=== PATIENT | female | born 1950 | race Caucasian/White ===

== ENCOUNTER 2020-08-11 20:02 | Emergency (ER) | payer OTHER, SELFPAY ==
[2020-08-11 20:13] VITALS: BP 159/84; PULSE 92; RESP 18; TEMP 37.1; O2SAT 99
== END 2020-08-11 20:15 | disposition left against medical advice (07) ==
PROVIDERS: Emergency Provider Nurse Practitioner
DX: Z01.812 Encounter for preprocedural laboratory examination (principal)
CPT/HCPCS: 99199

== ENCOUNTER 2021-12-24 18:07 | Emergency (ER) | payer OTHER, SELFPAY ==
[2021-12-24 18:18] VITALS: BP 177/57; PULSE 99; RESP 14; TEMP 36.6; O2SAT 97
--- NOTE | 2021-12-24 20:13 | ED.EXTPRO ---
HPI - Extremity Problem General Chief complaint: Extremity Problem,Nontraumatic Stated complaint: red swollen leg, right Time Seen by Provider: 12/24/21 19:58 Source: patient Mode of arrival: wheelchair Limitations: no limitations History of Present Illness HPI Narrative: This is a 71-year-old female that presents to the emergency department for right lower extremity edema and erythema. Ongoing over the last 3 days. Does report a ground-level fall the week prior. She did not sustain any injuries after that though. No recent travel or surgery. She does take exogenous estrogen. Denies any pain or fevers. Related Data Home Medications Medication Instructions Recorded Confirmed clonidine 0.1 mg/24 hr weekly 1 patch transdermal WEEKLY 02/03/19 02/03/19 transdermal patch esomeprazole magnesium 40 mg 40 mg PO DAILY 02/03/19 02/03/19 capsule,delayed release (Nexium) estradiol 2 mg (7.5 mcg/24 hour) 1 vag ring vaginal [id number] 02/03/19 02/03/19 vaginal ring levothyroxine 25 mcg tablet 25 mcg PO DAILY 02/03/19 02/03/19 (Synthroid) liraglutide 0.6 mg/0.1 mL (18 mg/3 0.6 mg subcut DAILY 02/03/19 02/03/19 mL) subcutaneous pen injector (Victoza 3-Benjamín) sertraline 100 mg tablet (Zoloft) 100 mg PO DAILY 02/03/19 02/03/19 Allergies Allergy/AdvReac Type Severity Reaction Status Date / Time Sulfa (Sulfonamide Allergy Unknown Difficulty Verified 12/24/21 18:07 Antibiotics) breathing mycins Allergy Unknown Other Uncoded 12/24/21 18:07 Review of Systems Review of Systems: CONSTITUTIONAL: Denies fever SKIN: Reports erythema and warmth All systems reviewed & are unremarkable except as noted in HPI and below PMFSH Past Medical History Medical History (Updated 12/24/21 @ 23:00 by Tona Hamm PA-C) Breast cancer Depression Diabetes mellitus GERD (gastroesophageal reflux disease) Hypertension Hypothyroidism Surgical History Surgical History History of partial mastectomy of right breast Family History Family History (Updated 09/20/17 @ 14:28 by DOCTOR UNKNOWN) Other Family history of malignant neoplasm Social History Social History (Updated 12/24/21 @ 20:15 by Tona Hamm PA-C) Smoking status: Former smoker Alcohol intake: never Gender identity (if verbalized by the patient): Female Exam Narrative: GENERAL: Well-appearing, well-nourished, and in no acute distress. HEAD: Normocephalic, atraumatic. EYES: EOMI. CHEST: No respiratory distress. HEART: Regular rate EXTREMITIES: Normal range of motion. Mild edema and erythema noted below the right knee to the ankle. Normal DP pulse. Normal sensation SKIN: Warm, dry, no rash. NEURO: No focal deficits. Alert and oriented x3. PSYCH: Normal mood and affect Course Vital Signs Vital signs: Vital Signs Temperature 97.8 F 12/24/21 18:18 Pulse Rate 99 12/24/21 18:18 Respiratory Rate 14 12/24/21 18:18 Blood Pressure 177/57 H 12/24/21 18:18 Pulse Oximetry 97 12/24/21 18:18 Oxygen Delivery Room Air 12/24/21 18:18 Temperature 97.8 F 12/24/21 18:18 Pulse Rate 99 12/24/21 18:18 Respiratory Rate 14 12/24/21 18:18 Blood Pressure 177/57 H 12/24/21 18:18 Pulse Oximetry 97 12/24/21 18:18 Oxygen Delivery Room Air 12/24/21 18:18 MDM - Extremity (Nontraumatic) MDM Narrative Medical decision making narrative: Patient presents the emergency department for right lower extremity edema and erythema noted over the last couple of days. Patient is afebrile and nontoxic-appearing. CBC with leukocytosis to 15.1. Inflammatory markers are elevated as well. D-dimer is also elevated. Patient will be started on oral antibiotics for cellulitis. She will also be set up for an ultrasound of her right lower extremity for possibility of DVT. Given a dose of Lovenox in the ER omaira. Is to have close follow-up with her primary provider. She hamlet
[2021-12-24 20:16] LABS: Basophils Percent Auto 0.3 % (0.2-1.2); Eosinophils Percent Auto 0.1 % (0-4.4); Hematocrit 35.3 % (37.0-47.0); Hemoglobin 10.6 g/dL (12.0-15.0); Immature Granulocyte Absolute 0.09 K/mm3 (0.00-0.031); Immature Granulocyte Percent A 0.6 % (0-0.5); Lymphocytes Absolute Auto 1.25 K/mm3 (0.9-3.2); Lymphocytes Percent Auto 8.3 % (18.3-44.2); Mean Corpuscular Hemoglobin 22.5 pg (26-34); Mean Corpuscular Volume 74.9 fl (80-100); Mean Platelet Volume 10.3 fl (7.4-10.4); Monocytes Absolute Auto 0.6 K/mm3 (0.1-0.6); Monocytes Percent Auto 4.2 % (2.6-8.5); Neutrophils Absolute Auto 13.1 K/mm3 (1.3-6.7); Neutrophils Percent Auto 86.5 % (45.5-73.1); Platelet Count Result 258 k/mm3 (150-375); Red Blood Count 4.71 M/mm3 (4.2-5.4); Red Cell Distribution Width 16.1 % (11.5-14.5); White Blood Count 15.1 K/mm3 (4.5-10.0)
[2021-12-24 20:27] LABS: Alanine Aminotransferase 20 U/L (6-35); Albumin Level 4.1 g/dL (3.5-5.1); Alkaline Phosphatase 90 U/L (38-126); Anion Gap 11 mmol/L (8-16); Aspartate Amino Transferase 25 U/L (14-36); Bilirubin,Total 0.7 mg/dL (0.2-1.3); Blood Urea Nitrogen 19 mg/dL (7-17); Calcium 9.6 mg/dL (8.4-10.2); Carbon Dioxide 25 mmol/L (22-30); Chloride 101 mmol/L (98-107); Estimated CRCL calculation 117 ml/min; Estimated Glomerular Filt Rate > 60; Glucose 170 mg/dL (65-110); INR 1.2; Potassium 3.7 mmol/L (3.4-5.0); Prothrombin Time 14.6 Seconds (11.1-14.7); Sodium 137 mmol/L (137-145)
[2021-12-24 20:29] LABS: Partial Thromboplastin Time 37.5 SECONDS (22.3-36.8)
[2021-12-24 20:34] LABS: Anisocytosis 1+ (NORMAL); Hypochromasia 2+ (NORMAL); Microcytosis 1+ (NORMAL); Ovalocytes 1+ (NORMAL); Platelet Estimate Adequate (Adequate)
[2021-12-24 20:38] LABS: Schistocytes None Seen (NORMAL)
--- NOTE | 2021-12-24 20:57 | PC.NURSE ---
Called lab and spoke with Daysi to add on ESR and CRP.
[2021-12-24 21:23] LABS: Erythrocyte Sedimentation Rate 71 mm/hr (0-20)
[2021-12-24 21:32] LABS: CRP 19.6 mg/dL (<1.0)
[2021-12-24] MEDS: ENOXAPARIN 80 MG/0.8 ML SYRINGE 150 MG SUB-Q (23:01)
[2021-12-24 23:20] VITALS: BP 166/84; PULSE 72; O2SAT 98
== END 2021-12-24 23:23 | disposition home or self-care (01) ==
PROVIDERS: Emergency Medicine; Physician Assistant; Emergency Provider Emergency Medicine
DX: L03.115 Cellulitis of right lower limb (principal); E11.9 Type 2 diabetes mellitus without complications; I10 Essential (primary) hypertension; E03.9 Hypothyroidism, unspecified; K21.9 Gastro-esophageal reflux disease without esophagitis; Z85.3 Personal history of malignant neoplasm of breast; F32.A Depression, unspecified; Z90.11 Acquired absence of right breast and nipple; Z79.899 Other long term (current) drug therapy
CPT/HCPCS: 36415; 80053; 85025; 85380; 85610; 85652; 85730; 86140; 96372; 99283; J1650

== ENCOUNTER 2021-12-25 07:19 | Outpatient (CLI) | payer OTHER, SELFPAY ==
--- NOTE | ~2021-12-25 | US_ITS ---
EXAMINATION:US venous doppler LE RT INDICATION:Leg edema. TECHNIQUE: Multiple grayscale, color flow and Doppler images of the right lower extremity deep venous systems were obtained and reviewed. COMPARISON:No prior studies for comparison. FINDINGS: The common femoral, superficial femoral and popliteal veins demonstrate normal respiratory variation, augmentation and compressibility. Color flow is also seen within the posterior tibial, pe roneal, greater saphenous and profunda veins. IMPRESSION: 1: No lower extremity deep venous thrombosis. Reviewed, dictated and finalized at location A.
== END 2021-12-25 07:20 | disposition home or self-care (01) ==
DX: R60.0 Localized edema (principal)
CPT/HCPCS: 93971

== ENCOUNTER 2022-09-12 18:34 | Emergency (ER) | payer OTHER, SELFPAY ==
--- NOTE | 2022-09-12 18:37 | ED.URI ---
HPI - URI/Sore Throat General Chief Complaint: Upper Respiratory Infection Stated Complaint: Sinus Time Seen by Provider: 09/12/22 18:56 Source: patient and RN notes reviewed Mode of arrival: ambulatory Limitations: no limitations History of Present Illness HPI Narrative: 71-year-old female presents for concern for one-week history of cough. She reports history of bronchitis. She denies nasal congestion or rhinorrhea. She reports a feeling of chest congestion. She reports she has been taking Mucinex without relief. She reports she also has a red rash on both of her arms MD elicited complaint: cough Related Data Home Medications Medication Instructions Recorded Confirmed clonidine 0.1 mg/24 hr weekly 1 patch transdermal WEEKLY 02/03/19 02/03/19 transdermal patch esomeprazole magnesium 40 mg 40 mg PO DAILY 02/03/19 02/03/19 capsule,delayed release (Nexium) estradiol 2 mg (7.5 mcg/24 hour) 1 vag ring vaginal [id number] 02/03/19 02/03/19 vaginal ring levothyroxine 25 mcg tablet 25 mcg PO DAILY 02/03/19 02/03/19 (Synthroid) liraglutide 0.6 mg/0.1 mL (18 mg/3 0.6 mg subcut DAILY 02/03/19 02/03/19 mL) subcutaneous pen injector (Victoza 3-Benjamín) sertraline 100 mg tablet (Zoloft) 100 mg PO DAILY 02/03/19 02/03/19 Flonase 09/12/22 Allergies Allergy/AdvReac Type Severity Reaction Status Date / Time Sulfa (Sulfonamide Allergy Unknown Difficulty Verified 09/12/22 18:39 Antibiotics) breathing mycins Allergy Unknown Other Uncoded 09/12/22 18:39 Review of Systems Review of Systems: CONSTITUTIONAL: Denies malaise, chills, sweats, or fever. EYES: Denies visual changes, redness, or discharge. ENT: Denies rhinorrhea, congestion, sinus pain, otalgia and sore throat. CARDIOVASCULAR: Denies chest pain, palpitations, or edema. RESPIRATORY: Reports cough, chest congestion. Denies dyspnea. GASTROINTESTINAL: Denies abdominal pain, nausea, vomiting, diarrhea SKIN: Reports itchy rash on both axilla MUSCULOSKELETAL: Denies myalgia. NEUROLOGIC: Denies headache. All systems reviewed & are unremarkable except as noted in HPI and below PMFSH Past Medical History Medical History (Updated 09/12/22 @ 19:07 by Lindsey Dalton NP) Breast cancer Depression Diabetes mellitus GERD (gastroesophageal reflux disease) Hypertension Hypothyroidism Surgical History Surgical History History of partial mastectomy of right breast Family History Family History (Updated 09/20/17 @ 14:28 by DOCTOR UNKNOWN) Other Family history of malignant neoplasm Social History Social History (Updated 12/24/21 @ 20:15 by KATHIE Watkins-Jesus) Smoking status: Former smoker Alcohol intake: never Gender identity (if verbalized by the patient): Female Comments At time of signature, agree with nursing past medical, surgical, social and family history. There is no relevant family history pertinent to the presenting complaint Exam Narrative: GENERAL: Well-appearing, well-nourished, and in no acute distress. HEAD: Normocephalic EYES: PERRLA, conjunctivae clear ENT: Nares clear. Mucous membranes moist. TM pearly chambers with dull light reflex bilaterally; no tragal tenderness. Oropharynx not erythematous without lesions. Tonsils not enlarged and without exudate, no drooling, no hoarseness, no trismus, uvula midline. NECK: Supple. No lymphadenopathy CHEST: Clear to auscultation, breath sounds equal. No wheezing, rhonchi, rales, or stridor. No respiratory distress, speaks in full sentences. Cough noted HEART: Regular rate and rhythm. No murmur heard. SKIN: Warm, dry, no rash. NEURO: Alert and oriented x3. PSYCH: Normal mood and affect Course Course Emergency Course: Discussed risk benefits with patient about taking steroids well diabetic, patient reports she has taken steroids before, she monitors her blood sugar daily. She would like to try steroids because her cou
[2022-09-12 18:46] VITALS: BP 158/68; PULSE 89; RESP 16; TEMP 37.2; O2SAT 96
== END 2022-09-12 19:09 | disposition home or self-care (01) ==
PROVIDERS: Emergency Provider Nurse Practitioner
DX: J40 Bronchitis, not specified as acute or chronic (principal); L25.9 Unspecified contact dermatitis, unspecified cause; Z87.891 Personal history of nicotine dependence; E11.9 Type 2 diabetes mellitus without complications; K21.9 Gastro-esophageal reflux disease without esophagitis; I10 Essential (primary) hypertension; E03.9 Hypothyroidism, unspecified; Z85.3 Personal history of malignant neoplasm of breast; Z90.11 Acquired absence of right breast and nipple
CPT/HCPCS: 99213; G0463

== ENCOUNTER → 2023-02-08 14:49 | Outpatient (CLI) | payer OTHER, SELFPAY ==
--- NOTE | ~2023-02-08 | US_ITS ---
EXAMINATION: US right upper quadrant DATE: 02/08/2023 15:27 INDICATION: Right upper quadrant abdominal pain. TECHNIQUE: Multiple grayscale and Doppler ultrasound images of the abdomen were obtained. COMPARISON: None FINDINGS: The visualized portions of the head of the pancreas are normal. The liver is normal without focal lesion. There is normal flow in main portal vein. The gallbladder is normal in size. No gallst ones or gallbladder wall thickening. There was no sonographic Haji sign. The common duct is normal and measures 4 mm. IMPRESSION: 1. Normal right upper quadrant ultrasound. Reviewed, dictated and finalized at location E. [employer]
== END ==
DX: R10.11 Right upper quadrant pain (principal)
CPT/HCPCS: 76705